=== PATIENT | female | born 1970 | race Caucasian/White ===

== ENCOUNTER 2019-01-04 19:57 | Emergency (ER) | payer MEDICAID, OTHER ==
[~2019-01-04 19:57] MED LIST: METF-440 PO; VICODIN
[2019-01-04] MEDS ORDERED: IV NS 0.9% 1,000 ML BAG IV ONE (20:30)
[2019-01-04] MEDS ORDERED: KETOROLAC TROMETHAMINE INJ 30 MG/ML VIAL IV ONE (20:30)
[2019-01-04] MEDS ORDERED: ASPIRIN 325 MG TABLET PO ONE (20:30)
[2019-01-04] MEDS ORDERED: ASPIRIN EC 325 MG TABLET.DR PO ONE (20:37)
[2019-01-04] MEDS ORDERED: KETOROLAC TROMETHAMINE INJ 30 MG/ML VIAL ONE (20:37)
[2019-01-04] MEDS ORDERED: ATENOLOL 50 MG TABLET PO ONE (21:30)
[2019-01-04] MEDS ORDERED: ATENOLOL 50 MG TABLET ONE (21:40)
== END 2019-01-05 00:11 | disposition home or self-care (01) ==
DX: R00.2 Palpitations (principal); R07.89 Other chest pain; E11.9 Type 2 diabetes mellitus without complications; Z79.84 Long term (current) use of oral hypoglycemic drugs
CPT/HCPCS: 36415; 71045; 80048; 80076; 84484; 85025; 85378; 85730; 93005; 96374; 99284; J1885; J7030

== ENCOUNTER 2021-06-12 11:30 | Emergency (ER) | payer MEDICAID, OTHER ==
[~2021-06-12] VITALS: Ht 157.5 cm; Wt 74.8 kg
--- NOTE | 2021-06-12 11:40 | NUR ---
WALK IN FROM HOME C/E NECK PAIN RADIATING TO SHOULDERS, + HEADACHE. DENIES ANY NAUSEA OR FEVER. NOT RELEIVED BY ADVIL OR TYLENOL. PAIN 10 ON PAINSCALE. BELIEVES IT MAY BE CAUSED BY WORK. AWAITING MD CHENG.
--- NOTE | 2021-06-12 11:55 | NUR ---
Dr Rodriguez at [facility] for eval.
--- NOTE | 2021-06-12 12:40 | NUR ---
BLOOD OBTAINED AND SENT TO LAB
[2021-06-12 12:48] LABS: BASOPHILS % (AUTO) 0.7 % (0.0-2.0); EOSINOPHILS % (AUTO) 1.4 % (0.0-6.0); HEMATOCRIT 40 % (33-45); HEMOGLOBIN 13.7 g/dL (11.5-14.8); LYMPHOCYTES # (AUTO) 2.6 K/uL (0.8-4.8); MEAN CORPUSCULAR HGB CONC 34 g/dl (31.0-36.0); MEAN CORPUSCULAR VOLUME 88 fL (82-100); MONOCYTES # (AUTO) 0.4 K/uL (0.1-1.30); MONOCYTES % (AUTO) 7.9 % (2.0-12.0); NEUTROPHILS # (AUTO) 2.1 K/uL (1.8-8.9); PLATELET COUNT (AUTO) 292 K/uL (150-450); RED BLOOD CELL COUNT(AUTO) 4.58 MIL/uL (4.0-5.2); WHITE BLOOD COUNT (AUTO) 5.2 K/uL (4.3-11.0)
--- NOTE | 2021-06-12 13:07 | NUR ---
CONSENT OBTAINED FROM PT FOR CT CAROTID ANGIOGRAPHY WITH CONTRAST
[2021-06-12 13:39] LABS: CALCIUM, SERUM 9.1 mg/dL (8.5-10.1); CREATININE 0.7 mg/dL (0.6-1.3)
[2021-06-12] MEDS ORDERED: CT SWABBABLE VALVE TRANS SET 1 EA INFUS.SET MC ONE (13:47)
[2021-06-12] MEDS ORDERED: IV NS 0.9% 250 ML IV ONE (13:47)
[2021-06-12] MEDS ORDERED: IOHEXOL-350 100 ML VIAL IV ONE (13:47)
--- NOTE | 2021-06-12 14:06 | NUR ---
PT RETURNED FROM CT
[2021-06-12] MEDS ORDERED: IBUP-1955 PO (14:58)
[2021-06-12] MEDS ORDERED: CYCL5TAB PO (14:58)
[2021-06-12] MEDS ORDERED: CYCLOBENZAPRINE 10 MG TABLET PO ONE (15:00)
[2021-06-12] MEDS ORDERED: KETOROLAC TROMETHAMINE INJ 30 MG/ML VIAL IM ONE (15:00)
[2021-06-12] MEDS ORDERED: CYCLOBENZAPRINE 10 MG TABLET ONE (15:05)
[2021-06-12] MEDS ORDERED: KETOROLAC TROMETHAMINE 15 MG/ML VIAL ONE ×2 (15:05→15:10)
--- NOTE | 2021-06-12 15:08 | NUR ---
IV removed. Catheter intact and site benign. Pressure and 4x4 applied to site. No bleeding noted. Patient discharged to home in stable condition. Written and verbal after care instructions given. Patient verbalizes understanding of instruction.
[2021-06-12 15:09] VITALS: BP 125/72
== END 2021-06-12 15:10 | disposition home or self-care (01) ==
LOC: ER 11:34
DX: S16.1XXA Strain of muscle, fascia and tendon at neck level, initial encounter (principal); I10 Essential (primary) hypertension; E11.9 Type 2 diabetes mellitus without complications; Z90.49 Acquired absence of other specified parts of digestive tract; Z90.89 Acquired absence of other organs; Z79.84 Long term (current) use of oral hypoglycemic drugs; X58.XXXA Exposure to other specified factors, initial encounter; Y93.89 Activity, other specified; Y92.89 Other specified places as the place of occurrence of the external cause; Y99.8 Other external cause status
CPT/HCPCS: 36415; 70498; 80048; 85025; 96374; 99285; J1885; J7050; Q9967

== ENCOUNTER 2021-11-12 06:05 | Emergency (ER) | payer MEDICAID ==
[~2021-11-12] VITALS: Ht 162.6 cm; Wt 63.5 kg
[~2021-11-12 06:05] MED LIST changes: +CYCL5TAB PO; +IBUP-1955 PO
--- NOTE | 2021-11-12 06:23 | NUR ---
TO ER BED 9. OMI C/O NAUSEA AND VOMITTING WITH FEVER AND DIFFUSED ABDOMINAL PAIN SINCE 2AM. PT AAOX4. AMBULATORY WITH STEADY GAIT. BREATHING IS EVEN AND NONLABORED. CONNECTED TO MONITOR. AWAITING MD ORDERS
[2021-11-12] MEDS ORDERED: KETOROLAC TROMETHAMINE INJ 30 MG/ML VIAL IV ONE (06:30)
[2021-11-12] MEDS ORDERED: IV NS 0.9% 1,000 ML BAG IV ONE ×2 (06:30→07:30)
[2021-11-12] MEDS ORDERED: ONDANSETRON HCL/PF 4 MG/2 ML VIAL IVP ONE (06:30)
[2021-11-12] MEDS ORDERED: PANTOPRAZOLE 40 MG VIAL IV ONE (06:30)
[2021-11-12] MEDS ORDERED: ONDANSETRON HCL/PF 4 MG/2 ML VIAL ONE (06:38)
[2021-11-12] MEDS ORDERED: PANTOPRAZOLE 40 MG VIAL ONE (06:38)
[2021-11-12] MEDS ORDERED: KETOROLAC TROMETHAMINE 15 MG/ML VIAL ONE (06:38)
--- NOTE | 2021-11-12 06:58 | NUR ---
IV LINE ESTABLISHED, [id number]. BLOOD OBTAINED AND SENT TO LAB
--- NOTE | 2021-11-12 07:04 | NUR ---
URINE SAMPLE COLLECTED AND SENT TO LAB
--- NOTE | 2021-11-12 07:04 | NUR ---
WEIVER OBTAINED FROM PT
[2021-11-12 07:07] LABS: BASOPHILS % (AUTO) 0.2 % (0.0-2.0); EOSINOPHILS % (AUTO) 0.2 % (0.0-6.0); HEMATOCRIT 39 % (33-45); HEMOGLOBIN 13.2 g/dL (11.5-14.8); LYMPHOCYTES # (AUTO) 0.6 K/uL (0.8-4.8); LYMPHOCYTES % (AUTO) 6.5 % (20.0-44.0); MEAN CORPUSCULAR HGB CONC 34 g/dl (31.0-36.0); MEAN CORPUSCULAR VOLUME 86 fL (82-100); MONOCYTES # (AUTO) 0.8 K/uL (0.1-1.30); MONOCYTES % (AUTO) 9.4 % (2.0-12.0); NEUTROPHILS # (AUTO) 7.3 K/uL (1.8-8.9); NEUTROPHILS % (AUTO) 83.7 % (43.0-81.0); PLATELET COUNT (AUTO) 231 K/uL (150-450); WHITE BLOOD COUNT (AUTO) 8.7 K/uL (4.3-11.0)
[2021-11-12 07:13] LABS: BILIRUBIN,DIRECT 0.2 mg/dL (0.0-0.2); BILIRUBIN,TOTAL 0.6 mg/dL (0.2-1.0); CREATININE 0.8 mg/dL (0.6-1.3); POTASSIUM 4.2 mmol/L (3.5-5.1); TOTAL PROTEIN, SERUM 7.5 g/dL (6.4-8.2)
[2021-11-12 08:20] LABS: BILIRUBIN,URINE NEGATIVE (NEGATIVE); COLOR,URINE YELLOW (YELLOW); LEUKOCYTE ESTERASE ,URINE NEGATIVE (NEGATIVE); NITRITE, URINE NEGATIVE (NEGATIVE); PROTEIN,URINE NEGATIVE (NEGATIVE); UGLUCOSE 500 MG/DL mg/dL (NEGATIVE); UROBILINOGEN,URINE 0.2 EU/dL (0.2)
[2021-11-12 08:38] LABS: BACTERIA,URINE Moderate /HPF (None Seen); RBC,URINE 0-2 /HPF (0-2); WBC,URINE 0-2 /HPF (0-3)
[2021-11-12] MEDS ORDERED: PANT40TA2 PO (08:39)
[2021-11-12] MEDS ORDERED: ONDA4TAB5 PO (08:39)
[2021-11-12 09:23] VITALS: BP 110/60
== END 2021-11-12 09:24 | disposition home or self-care (01) ==
LOC: ER 06:07
DX: R10.13 Epigastric pain (principal); E11.65 Type 2 diabetes mellitus with hyperglycemia; I10 Essential (primary) hypertension; Z20.822 Contact with and (suspected) exposure to COVID-19; Z79.84 Long term (current) use of oral hypoglycemic drugs
CPT/HCPCS: 36415; 71045; 74176; 80048; 80076; 81001; 83690; 85025; 87086; 87426; 96361; 96374; 96375; 99285; C9113; C9803; J1885; J2405; J7030